=== PATIENT | male | born 1965 | race Caucasian/White ===

== ENCOUNTER 2019-04-07 15:16 | Emergency (ER) | payer SELFPAY ==
[2019-04-07] MEDS ORDERED: Sodium Chloride 0.9% 1,000 ML IV SCH (15:45)
[2019-04-07] MEDS ORDERED: Lidocaine 1% 50 ML MDV INJECT ONE (15:46)
[2019-04-07] MEDS ORDERED: Diphtheria,Pertussis(Acell),Tetanus Vaccine 0.5 ML Syringe IM ONE (15:46)
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
[2019-04-07] MEDS ORDERED: Iopamidol 612 MG/ML 100 ML Bottle IVPUSH ONE (15:53)
[2019-04-07] MEDS ORDERED: Sodium Chloride 0.9% 10 ML Syringe FLUSH ONE (15:53)
[2019-04-07] MEDS ORDERED: Iopamidol 612 MG/ML 50 ML SDV IVPUSH ONE (15:53)
[2019-04-07] MEDS: Sodium Chloride 0.9% 10 ML Syringe FLUSH PRN ×2 (16:01→16:31)
[2019-04-07] MEDS ORDERED: Metoprolol Tartrate 5 MG/5 ML SDV IVPUSH ONE (17:52)
[2019-04-07] MEDS ORDERED: Metoprolol Tartrate 50 MG Tab PO ONE (18:05)
[2019-04-07] MEDS ORDERED: Acetaminophen/HYDROcodone 325-5 MG Tab PO ONE (18:50)
--- NOTE | 2019-04-09 16:23 | CT ---
CT chest Technique: Multiple axial sections were obtained from above the lung apices inferiorly through the lung bases. Intravenous contrast was utilized. Comparison: Prior chest x-ray performed earlier on the same day. Findings: Mediastinum and hilar regions are unremarkable. No pericardial fluid is seen. No axillary adenopathy is noted. No mediastinal hematoma is seen. No pulmonary contusion is seen on lung window settings. No pleural effusions are noted. No discrete rib fracture is appreciated. Vertebral body heights are maintained within the thoracic spine. Mild degenerative change is seen within the thoracic spine. Reconstructed lateral images of the sternum appear to be intact. Impression: 1. Nothing acute is appreciated on CT study of the chest. Diagnostic code #2 This report was dictated in [facility] Time I agree with preliminary report from [facility], finalized on 04/07/19, 6:[address] abdomen and pelvis Technique: Multiple axial sections were obtained from above the dome of the diaphragm inferiorly through the pubic symphysis. Intravenous contrast was utilized. No oral contrast has been given. Comparison: No prior abdominal imaging is available. Findings: Slightly lobular contour of the liver is seen. Findings felt compatible with cirrhosis. Two small low density findings are noted within the right lobe of the liver. These measure about 8 mm and 9.5 mm in size. These have Hounsfield unit measurements of cysts. Very small abnormality which is most likely of similar etiology measuring 3 mm within the upper right lobe. No additional liver abnormality is seen. Large gallstone is seen within the gallbladder which is calcified and measures 1.5 cm. Spleen is mildly enlarged with length of 16.8 cm. Adrenal glands show no nodule. Varicosities are identified within the abdomen. Kidneys show symmetric contrast enhancement without abnormality. Pancreas is within normal limits. Aorta shows no aneurysm. No retroperitoneal adenopathy is seen. No pelvic mass or adenopathy is seen. No free fluid or inflammatory change is identified. Appendix is believed to be seen and is normal in size. Bone window settings were reviewed which show slight degenerative change within the lumbar spine. Nothing acute is definitely appreciated. No discrete fracture is appreciated within the pelvis or hips. Impression: 1. Findings compatible with cirrhosis within the liver. Spleen is enlarged with varicosities being seen within the abdomen. 2. Single large calcified gallstone within the gallbladder. 3. Nothing acute is otherwise seen on CT study of the abdomen and pelvis. Diagnostic code #3 This report was dictated in [facility] Time I agree with preliminary report from [facility], finalized on 04/07/19, 6:22 PM Central Time
--- NOTE | 2019-04-09 16:23 | CT ---
Head CT Technique: Multiple axial sections through the brain were obtained. Intravenous contrast was not utilized. Comparison: No previous intracranial imaging. Findings: Soft tissue hematoma is noted within the left frontal scalp. Ventricles along with basal cisterns and sulci over the convexities appear within normal limits. No abnormal parenchymal densities are seen. No evidence of intracranial hemorrhage. No midline shift or mass effect is seen. Bone window settings were reviewed. Scalp laceration is noted posteriorly on the right side of the frontal scalp. No acute calvarial fracture is seen. Mastoid sinuses show nothing acute. Slight mucosal thickening is seen within the right maxillary sinus with small amount of fluid also seen within the right maxillary sinus. Nasal bone fracture is partially visualized. Impression: 1. Scalp hematoma within the anterior left frontal region. Scalp laceration within the posterior right frontal scalp. 2. No acute intracranial abnormality is seen. 3. Nasal bone fracture. Small amount of fluid within the right maxillary sinus most likely representing change from the nasal bone fracture. Diagnostic code #3 This report was dictated in [facility] Time I agree with preliminary report from [facility], finalized on 04/07/19, 6:05 PM Central Time
--- NOTE | 2019-04-09 16:24 | CT ---
CT cervical spine Technique: Multiple axial sections were obtained from above C1 inferiorly to the upper T2 vertebral body. Reconstructed sagittal and coronal images were reviewed. Comparison: No prior cervical spine imaging is available. Findings: Fairly severe disc space narrowing is noted C4-C5, C5-C6 and C6-C7 as well as lesser disc space narrowing at C7-T1. Posterior osteophytes are noted at C5-C6 and C6-C7. Degenerative change is noted between the dens and anterior arch of C1. Degenerative spurring is noted within the uncovertebral joints at C4-C5, C5-C6 and lesser at C6-C7. Moderate right sided neural foraminal stenosis is noted at C4-C5. Mild left-sided neural foraminal stenosis is noted at C5-C6. Mild left-sided neural foraminal stenosis is noted at C6-C7. Diffuse posterior disc bulge noted at C3-C4 causing mild central canal stenosis. Mild diffuse posterior disc bulge is noted at C4-C5 also causing mild central canal stenosis. Posterior spurring at C5-C6 on the right side causes slight right sided central canal stenosis. Posterior spurring at C6-C7 causes mild central canal stenosis. No acute fracture is seen. No subluxation is seen. Impression: 1. Diffuse degenerative change as noted above. 2. No acute fracture or or abnormal subluxation is seen on CT study of the cervical spine. Diagnostic code #2 This report was dictated in [place] [facility] Time I agree with preliminary report from [facility], finalized on 04/07/19, 6:10 PM Central Time
--- NOTE | 2019-04-09 17:48 | CR ---
Chest: Portable view of the chest was obtained. Comparison: No prior chest imaging. Heart size and mediastinum are normal. Lungs are clear. Bony structures are unremarkable. Impression: 1. Nothing acute is seen on portable chest x-ray. Diagnostic code #1 This report was dictated in [place] [facility] Time
== END 2019-04-07 19:02 | disposition home or self-care (01) ==
LOC: JD.ED 15:16
DX: S02.2XXA Fracture of nasal bones, initial encounter for closed fracture (principal); S01.81XA Laceration without foreign body of other part of head, initial encounter; S00.83XA Contusion of other part of head, initial encounter; S30.811A Abrasion of abdominal wall, initial encounter; R94.5 Abnormal results of liver function studies; E80.6 Other disorders of bilirubin metabolism; I10 Essential (primary) hypertension; F17.290 Nicotine dependence, other tobacco product, uncomplicated; V58.0XXA Driver of pick-up truck or van injured in noncollision transport accident in nontraffic accident, initial encounter
CPT/HCPCS: 12013; 36415; 70450; 71045; 71260; 72125; 74177; 80053; 80320; 85025; 90471; 90715; 96361; 96374; 99284; A9270; J2001; J3490; J7030; Q9967; G0480